=== PATIENT | female | born 1990 | race African-American/Black ===

== ENCOUNTER 2025-01-05 07:37 | Emergency (ER) | payer OTHER, SELFPAY ==
--- NOTE | ~2025-01-05 | XR_ITS ---
EXAMINATION: XR ankle RT min 3V, 01/05/2025 12:05 CDT HISTORY: ankle injury COMPARISON: No comparisons available. Findings: No acute fracture or malalignment. No significant degenerative changes. Soft tissues unremarkable. Impression: No acute fracture or malalignment. Reviewed, dictated and finalized at location P. Impression: No acute fracture or malalignment.
[2025-01-05 07:46] VITALS: BP 153/112; PULSE 87; RESP 19; TEMP 36.9; O2SAT 100
[2025-01-05 10:01] VITALS: BP 156/104; PULSE 67; RESP 20; TEMP 36.6; O2SAT 100
--- NOTE | 2025-01-05 11:44 | ED_ITS ---
HPI - General Adult General Chief complaint: Fall Stated complaint: fall down steps yesterday Time Seen by Provider: 01/05/25 11:01 History of Present Illness HPI narrative: 34-year-old female presents emergency department for evaluation for right ankle pain. Patient reports that she was walking down steps missed to of the bottom stairs and injured her right ankle. Patient denies any pain and proximal tib- fib or of the foot. Patient denies striking head denies loss consciousness. Related Data Allergies Allergy/AdvReac Type Severity Reaction Status Date / Time adhesive tape AdvReac Mild Unknown Verified 01/05/25 07:49 Review of Systems Review of Systems: All systems reviewed & are unremarkable except as noted in HPI and below Exam Narrative: APPEARANCE: Well appearing, no pain, no distress, well-nourished. HEAD: normocephalic, atraumatic. EYES: PERRLA/EOMI, conjunctivae clear. NOSE: Normal no drainage EARS:TMS clear with good light reflex. THROAT: Pharynx clear, no exudate. NECK: Supple. No adenopathy, no masses. RESPIRATORY: Airway patent, respirations nonlabored. Clear to auscultation bilaterally, no rales, rhonchi, wheezing. CARDIOVASCULAR: Regular rate and rhythm without murmurs rubs or gallops. ABDOMINAL: Soft, nontender, nondistended, normal bowel sounds MUSCULOSKELETAL: Right lateral ankle tenderness to palpation with no significant deformity or edema, no proximal tib-fib tenderness to palpation and no foot tenderness to palpation. NEURO: Alert. Cranial nerves II through XII intact. Good gait. Good coordination SKIN: Warm, dry. Normal Color Course Vital Signs Vital signs: Vital Signs Temperature 98.4 F 01/05/25 07:46 Pulse Rate 87 01/05/25 07:46 Respiratory Rate 19 01/05/25 07:46 Blood Pressure 153/112 H 01/05/25 07:46 Pulse Oximetry 100 01/05/25 07:46 Oxygen Delivery Room Air 01/05/25 07:46 Temperature 97.8 F 01/05/25 10:01 Pulse Rate 67 01/05/25 10:01 Respiratory Rate 20 01/05/25 10:01 Blood Pressure 156/104 H 01/05/25 10:01 Pulse Oximetry 100 01/05/25 10:01 Oxygen Delivery Room Air 01/05/25 07:46 Medical Decision Making MDM Narrative Medical decision making narrative: 34-year-old female presents emergency department for evaluation for right ankle pain after having a fall down 2 stairs. Patient does report pain with ambulation. X-ray is negative for acute fracture dislocation. No concern for foot fracture or proximal tib-fib fracture. Patient provided [place] wrap and crutches for limited weight-bearing. Patient was updated results of her workup. Patient was comfortable the plan for discharge and close follow-up. Differential Diagnosis Differential Diagnosis: Proximal tib-fib fracture, ankle fracture, ankle sprain, foot fracture, foot strain Vital Signs Vital Signs: Vital Signs Temperature 98.4 F 01/05/25 07:46 Pulse Rate 87 01/05/25 07:46 Respiratory Rate 19 01/05/25 07:46 Blood Pressure 153/112 H 01/05/25 07:46 Pulse Oximetry 100 01/05/25 07:46 Oxygen Delivery Room Air 01/05/25 07:46 Temperature 97.8 F 01/05/25 10:01 Pulse Rate 67 01/05/25 10:01 Respiratory Rate 20 01/05/25 10:01 Blood Pressure 156/104 H 01/05/25 10:01 Pulse Oximetry 100 01/05/25 10:01 Oxygen Delivery Room Air 01/05/25 07:46 Imaging Data Radiologist's impression: Impressions Ankle X-Ray 01/05/25 12:26 Impression: No acute fracture or malalignment. Discharge Plan Discharge Clinical Impression: Ankle sprain Patient Disposition: Home Condition: Stable Instructions: Antibiotic Form, Ankle Sprain (DC), Crutch Instructions (ED) Additional Instructions: [place] wrap for comfort and crutches for limited weight-bearing for the next 3-5 days. Have close follow-up with your primary care physician. If you have any worsening symptoms and please call or return to the emergency department. Patient Language: Spanish Follow-up/Referrals: rUiel,Mian Sutton MD [Non-Staff] Stand Alone Forms: Work/School Release IP
--- NOTE | 2025-01-05 13:16 | PC.NURSE ---
Pt refused crutches, stated has a pair at home. Crutch training verbalized and discussed to pt.
== END 2025-01-05 13:18 | disposition home or self-care (01) ==
PROVIDERS: Emergency Provider Emergency Medicine; PCP Internal Medicine
DX: S93.401A Sprain of unspecified ligament of right ankle, initial encounter (principal); W10.9XXA Fall (on) (from) unspecified stairs and steps, initial encounter
CPT/HCPCS: 73610; 99283